=== PATIENT | female | born 1935 | race Caucasian/White ===

== ENCOUNTER 2020-12-26 22:23 | Emergency (ER) | payer MEDICARE, OTHER ==
[~2020-12-26] VITALS: Ht 167.6 cm; Wt 102.1 kg
[~2020-12-26 22:23] MED LIST: AMLODIPINE BESYL5 MG PO; ASPIRIN EC81 MG PO; BYSTOLIC5 MG PO; CALCIUM 500 +1 EAC4 PO; FISH OIL 1,001000 MG PO; HYDROCODON-ACE1 EA10 PO; IBUPROFEN600 MG PO; LEVAQUIN500 MG PO; MACUVITE WITH1 EACH PO; MAPAP325 MG PO; MULTI VITAMIN1 EACH PO; NITROFURANTOIN100 M1 PO; NORVASC10 MG PO; PRILOSEC20 MG PO; SIMVASTATIN20 MG PO
== END 2020-12-27 01:30 | disposition home or self-care (01) ==
LOC: ED 22:23
PROC: 0HQ0XZZ Repair Scalp Skin, External Approach (ICD-10-PCS; principal; 2020-12-26)
DX: S01.01XA Laceration without foreign body of scalp, initial encounter (principal); I10 Essential (primary) hypertension; Z23 Encounter for immunization; Z88.8 Allergy status to other drugs, medicaments and biological substances; Z79.899 Other long term (current) drug therapy; W18.30XA Fall on same level, unspecified, initial encounter
CPT/HCPCS: 12002; 70450; 72125; 90471; 90715; 99283-25

== ENCOUNTER 2021-02-13 10:43 | Emergency (ER) | payer MEDICARE, OTHER ==
[~2021-02-13] VITALS: Ht 167.6 cm; Wt 104.3 kg
--- NOTE | 2021-02-14 06:54 | EKG ---
[facility] [address] [place] [address] Signed Sinus bradycardia Low voltage QRS Cannot rule out Anterior infarct , age undetermined Abnormal ECG When compared with ECG of 13-OCT-2016 07:40, Vent. rate has decreased BY 29 BPM Confirmed by IRIS DOVER MD ([id number] on 02/14/2021 6:54:46 AM Electronically Signed By: IRIS DOVER MD 02/14/21 [id number] PATIENT NAME: LEX ALFONSO Electrocardiogram DATE OF : 31 PHYSICIAN: IRIS DOVER MD REPORT #: [id number] REPORT IS CONFIDENTIAL AND NOT TO BE RELEASED WITHOUT AUTHORIZATION
== END 2021-02-13 13:03 | disposition home or self-care (01) ==
LOC: ED 10:43
DX: R42 Dizziness and giddiness (principal); I10 Essential (primary) hypertension; E78.00 Pure hypercholesterolemia, unspecified; Z88.8 Allergy status to other drugs, medicaments and biological substances; Z79.899 Other long term (current) drug therapy
CPT/HCPCS: 80053; 83735; 84484; 85025; 93005; 93010; 99284-25